=== PATIENT | female | born 1955 | race Caucasian/White ===

== ENCOUNTER 2017-01-24 16:16 | Emergency (ER) | payer OTHER ==
[~2017-01-24 16:16] MED LIST: AZITHROMYCIN500 MG PO; COLACE100 MG PO; COZAAR100 MG PO; EFFER-K 10 MEQ10 MEQ PO; FERROUS SULFAT325 M2 PO; FLONASE ALLER15.8 ML; FOLGARD TABLET1 EACH PO; LASIX20 MG PO; MUCINEX600 MG PO; PROTONIX40 MG PO; QVAR8.7 G1 INH; TOPROL XL 25 MG25 MG PO; ZYRTEC10 MG PO; [UNRECOGNIZED DRUG - OTHER] IM
[2017-01-24 17:54] LABS: HEMOGLOBIN 7.4 gm/dl (12.3-15.3); RED BLOOD COUNT 2.9 M/UL (4.00-5.10)
[2017-01-24 18:14] LABS: BUN/CREATININE RATIO 20 (0-10)
== END 2017-01-24 21:50 ==
LOC: ER1 16:16
PROVIDERS: Emergency Medicine
DX: D64.9 Anemia, unspecified (principal); I10 Essential (primary) hypertension; Z79.899 Other long term (current) drug therapy
CPT/HCPCS: 36415; 80053; 82272; 84484; 85025; 85610; 85730; 86850; 86900; 86901; 93005; 96374; 99285; C9113